=== PATIENT | female | born 1985 | race Caucasian/White ===

== ENCOUNTER → 2023-06-01 07:15 | Outpatient (REF) | payer OTHER, SELFPAY | LOC: HWRAD 07:15 | PROVIDERS: ATTENDING PHYSICIAN Internal Medicine; FAMILY PHYSICIAN Family Medicine | DX: Q61.2 Polycystic kidney, adult type (principal); I10 Essential (primary) hypertension | CPT/HCPCS: 76775 ==

== ENCOUNTER 2024-04-29 18:56 | Emergency (ER) | payer MEDICARE, SELFPAY ==
[2024-04-29 19:03] VITALS: BP 165/104
[2024-04-29 19:57] LABS: % Basophils 0.4 % (0-2); % Eosinophils 2.3 % (0-6); % Immature Granulocytes 0.1 % (0-0.5); % Lymphocytes 27.4 % (20.5-51.1); % Monocytes 6.4 % (1.7-9.3); % Neutrophils 63.4 % (42.2-75.2); Absolute Eosinophils 0.2 10^3/uL (0-0.7); Absolute Lymphocytes 2.1 10^3/uL (1.2-3.4); Absolute Monocytes 0.5 10^3/uL (0.1-0.6); Absolute Neutrophils 4.9 10^3/uL (1.4-6.5); Hematocrit 32.8 % (37.0-47.0); Hemoglobin 11.1 g/dL (12.0-16.0); Mean Corp Hgb Conc. 33.8 g/dL (33.0-37.0); Mean Corpuscular Hgb 28.5 pg (27.0-31.0); Mean Corpuscular Volume 84.1 fL (81.0-99.0); Mean Platelet Volume 9.3 fL (7.4-10.4); Nucleated Red Blood Cells % 0 %; Platelet Count 331 10^3/uL (130-400); Red Cell Dist. Width 12.8 % (11.5-14.5); White Blood Cell Count 7.7 10^3/uL (4.8-10.8)
[2024-04-29 20:09] LABS: HCG, Serum Qualitative Screen Negative
[2024-04-29 20:18] LABS: ALT (SGPT) 16 U/L (0-35); AST (SGOT) 26 U/L (14-36); Albumin 3.9 g/dl (3.5-5.0); Alkaline Phosphatase 84 U/L (38-126); Blood Urea Nitrogen 15 mg/dl (7-17); Calcium 9.2 mg/dl (8.4-10.2); Carbon Dioxide 25 mmol/L (22-30); Chloride 105 mmol/L (98-107); Glucose 100 mg/dl (70-99); Potassium 4.3 mmol/L (3.5-5.1); Sodium 138 mmol/L (135-145); Total Bilirubin 0.3 mg/dl (0.2-1.3); Total Protein 6.9 g/dl (6.3-8.2); eGFR > 60.00
[2024-04-29 20:23] LABS: Troponin I < 0.012 ng/ml
[2024-04-29 22:18] VITALS: BP 140/82
--- NOTE | 2024-04-29 22:22 | ED.CVA ---
History of Present Illness
General
Chief Complaint: CVA/TIA Symptoms
Source: patient and spouse
Exam Limitations: none
Time Seen by Provider: 04/29/24 22:00
Nursing documentation reviewed up to this point in time: agreed with
Onset of Stroke Symptoms
Onset of symptoms known: Yes
Date of onset of symptoms: 04/29/24
Time of onset of symptoms: 18:30
History of Present Illness
History of Present Illness:
This is a 38-year-old woman who has history of hypertension, anxiety/depression who states tonight while sitting on the couch watching TV around 6:30 PM she suddenly began to feel 'dizzy' which she describes as a sense of lightheadedness but denies
a sense of spinning nor a sense of movement. She got up from the couch, dizziness seemed to resolve but then she developed tingling on the left side of her arm, tingling of left side of her face as well as developed left-sided headache. Headache
was somewhat mild at first but then progressed in intensity. She denies vision difficulty, no nausea or vomiting, no chest pain or palpitations, no fevers or chills, no congestion.
She denies difficulty with her speech, denies weakness.
states at 1 point this afternoon/evening her face was flushed but she has not had a fever nor congestion.
No history of similar episodes in the past.
She has not taken anything for symptoms. Overall feeling improved, continues with mild left-sided headache, very minimal intermittent tingling left arm but continues to have no weakness, no chest pain, no return of dizziness nor lightheadedness.
Denies risk of , last menstrual period 1 week ago, normal and on time.
Her daily medications include: Lexapro, lisinopril, Klonopin.
Past History
Past History
ED Past Medical History: HTN, Psychiatric (Anxiety/depression) and Other (Left renal cysts)
ED Past Surgical History:
Social History
Tobacco: Vaping (Vapes nicotine)
Alcohol: None
Drug: None
Personal:
Living: with family
Employment: Not employed
Family History
Family History: Other (Noncontributory)
Phy Exam
Physical Exam
Physical Exam:
GENERAL: 38-year-old female appears her stated age, awake and alert, pleasant, appears in no acute distress. is accompanying. Afebrile. BP 140/80
EYE: pupils equal and reactive. Extraocular muscles intact. Discs are sharp bilaterally. Anicteric
NECK: Supple, nontender, no meningismus, no significant adenopathy.
ENT: posterior pharynx is clear, oral mucosa is moist. TM clear b/l, nares patent.
CARDIAC: Regular rate and rhythm. no murmur.
LUNGS: Clear breath sounds bilaterally, no acute respiratory distress, no wheezes/rales/rhonchi
ABDOMEN: Soft, nondistended, without focal tenderness, no r/g, no cvat. normoactive BS.
NEUROLOGICAL: Alert and oriented x3, no focal neuro deficits. Cranial nerves II through XII grossly intact. Motor strength 5/5 bilaterally. Gross sensation is intact bilaterally. Gait is grant and steady.
SKIN: Warm and dry, normal color, skin intact. No rash.
MUSCULOSKELETAL: No C/C/E. peripheral pulses are full and equal b/l. No palpable tenderness.
PSYCH: Normal and appropriate interaction.
Course
Orders/Labs/Results
Orders:
Orders
04/29/24 19:05
Electrocardiogram (*1) Urgent
Reason for Study: Vertigo / Dizzy
CT Head W/o Iv Contrast Urgent
Comment:
Reason For Exam: dizziness
EKG- Treatment ONCE
04/29/24 19:06
Test Result ONCE
04/29/24 19:41
CBC/With Diff [Complete Blood Count/With Diff] Urgent
Comprehensive Metabolic Panel Urgent
HCG, Serum Qualitative Screen Urgent
Troponin I Urgent
04/29/24 22:21
0.9% Sodium Chloride 1000 ml [Nss] 1,000 ml IV BOLUS
Diphenhydramine [Benadryl] 25 mg IV NOW STA
Prochlorperazine [Compazine] 10 mg IV NOW STA
Abnormal Lab Results
04/29/24
19:41
RBC 3.90 L 10^6/uL
(4.20-5.40)
Hgb 11.1 L g/dL
(12.0-16.0)
Hct 32.8 L %
(37.0-47.0)
Creatinine 1.1 H mg/dL
(0.6-1.0)
Glucose 100 H mg/dl
(70-99)
04/29/24 19:41
04/29/24 19:41
Vital Signs
Initial and Last Documented VS:
Initial Vital Signs
Temp Pulse Resp BP Pulse Ox
98.2 F 83 20 165/104 99
04/29/24 19:03 04/29/24 19:03 04/29/24 19:03 04/29/24 19:03 04/29/24 19:03
Last Documented Vital Signs
Temp Pulse Resp BP Pulse Ox
98.2 F 83 20 140/82 99
04/29/24 19:03 04/29/24 19:03 04/29/24 19:03 04/29/24 22:18 04/29/24 19:03
MDM/Problems Addressed
Differential Diagnosis Includes:
Concern for acute complex migraine headache, concern for subarachnoid hemorrhage, CVA/TIA. ACS is another consideration however less likely.
Overall well in appearance. No focal neurodeficits. NIH stroke scale is 0.
CT of the head is unremarkable. No evidence of subarachnoid hemorrhage.
EKG is unremarkable, no acute ST-T wave abnormalities.
Labs are unremarkable including negative troponin. Creatinine 1.1.
Will trial an IV dose of Compazine, Benadryl, IV fluids and continue to observe.
Chronic conditions affecting care: HTN
*Radiology
Radiology exam reviewed: radiology read reviewed (CT of the head is unremarkable)
*Pulse Oximetry
Patient hypoxic: no
*EKG
Interpreted by ED Provider?: Yes
Interpretation: normal
Comparison EKG: no comparison EKG present
Rate: normal
Rhythm: sinus
Clarence: normal axis
Interval: normal interval
QRS Pattern: normal QRS
Ischemia: no ischemia
*Critical Care Note
Total Time (30-74mins, 75-104mins- exclusive of procedures): Not Applicable
Update Note
Update Note:
23:50
Patient reports complete relief of headache, no further paresthesia.
Will discharge to home with recommendations for prompt follow-up with PCP. Will refer to neurology as well.
Strict return precautions discussed.
ED Attending Note
-
Portions of this chart may have been created with voice recognition software.� Occasional wrong word or��sound alike� substitutions may have occurred due to the inherent limitations of voice recognition software.
Discharge Plan
Departure
Patient Disposition: Home (Routine Discharge)
Date of Disposition: 04/29/24
Time of Disposition: 23:51
Patient with high blood pressure during this ER visit?: No
Condition: Good
Discharge Problem:
complex migraine headache
Instructions: Migraine in adults
Prescriptions:
No Action
No Current Meds
amoxicillin-pot clavulanate 1 TABLET tablet
1 tab PO Q12 Qty: 14 0RF
Referrals:
Hernandez Blankenship MD [Active] - Call in 1-3 days for appt
Luisito Patel DO [Family Provider] - Call in 1-3 days for appt
Stand Alone Forms: Return to Work
Interventions
Interventions:
*General Assessment Last Done: 04/29/24 19:03
ED- Pulmonary Assessment Last Done: 04/29/24 23:02
ED- Neurological Assessment Last Done: 04/29/24 23:02
ED- Cardiac Assessment Last Done: 04/29/24 23:02
Discharge Date and Time
Print Language: GREEK
[2024-04-29] MEDS: NSS 1000 IV (22:43)
[2024-04-29] MEDS: COMPAZINE 10 MG IV (22:44)
[2024-04-29] MEDS: BENADRYL 25 MG IV (22:44)
== END 2024-04-30 00:01 | disposition home or self-care (01) ==
LOC: EMR 18:56
PROVIDERS: Emergency Medicine; EMERGENCY PHYSICIAN Emergency Medicine; FAMILY PHYSICIAN Family Medicine
DX: G43.109 Migraine with aura, not intractable, without status migrainosus (principal); I10 Essential (primary) hypertension; F32.A Depression, unspecified; F41.9 Anxiety disorder, unspecified; Z79.899 Other long term (current) drug therapy; F17.290 Nicotine dependence, other tobacco product, uncomplicated
CPT/HCPCS: 96374; 96375; 96361; 99284; 70450; 80053; 84484; 84703; 85025; 93005

== ENCOUNTER → 2024-10-18 14:12 | Outpatient (REF) | payer OTHER, SELFPAY | LOC: HWRAD 14:12 | PROVIDERS: ATTENDING PHYSICIAN Student in an Organized Health Care Education/Training Program; FAMILY PHYSICIAN Internal Medicine | DX: N83.201 Unspecified ovarian cyst, right side (principal) | CPT/HCPCS: 76830; 76856 ==

== ENCOUNTER → 2024-11-23 14:07 | Outpatient (REF) | payer OTHER, SELFPAY | LOC: HWWDC 14:07 | PROVIDERS: ATTENDING PHYSICIAN Student in an Organized Health Care Education/Training Program; PRIMARYCARE PHYSICIAN Internal Medicine | DX: Z12.31 Encounter for screening mammogram for malignant neoplasm of breast (principal) | CPT/HCPCS: 77063; 77067 ==